=== PATIENT | female | born 2000 | race Caucasian/White ===

== ENCOUNTER 2023-03-04 22:47 | Emergency (ER) | payer OTHER, SELFPAY ==
[2023-03-04 23:05] VITALS: BP 130/62; PULSE 66; RESP 18; TEMP 36.3; O2SAT 97; BMI 20.7
--- NOTE | 2023-03-04 23:21 | DI.RAD.S_ITS ---
PROCEDURE: XR LUMBAR SPINE 2-3V INDICATIONS: low back pain,lifting heavy objects all summer TECHNIQUE: 3 views of the lumbar spine were acquired. COMPARISON: None. FINDINGS: Bones: 5 [id number] vertebrae are present. There is a minimal leftward curvature of the thoracolumbar spine. Disc spaces appear preserved. There is mild facet arthropathy at L5-S1. No vertebral body compression fractures. No suspicious bony lesions. Soft tissues: Overlying bowel gas pattern is normal. No suspicious soft tissue calcifications. IMPRESSION: 1. Mild facet arthropathy at L5-S1. Dictated by: Héctor Sherman M.D. on 03/05/2023 at 1:05 Approved by: Héctor Sherman M.D. on 03/05/2023 at 1:06
[2023-03-05 00:46] VITALS: BP 114/65; PULSE 60; RESP 18; O2SAT 99
--- NOTE | 2023-03-05 01:12 | ED_ITS ---
HPI - Back Pain/Injury General Chief Complaint: Back Pain/Injury Stated Complaint: low back pain Time Seen by Provider: 03/04/23 23:10 Source: patient Mode of arrival: Ambulatory Limitations: no limitations History of Present Illness HPI Narrative: Patient is a 22-year-old female who is here for evaluation of bilateral lower back with the right being greater than left back pain. 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 She states she does lift kayaking very frequently. She feels that she is been lifting more these over the past couple days. There was not 1 specific incident that caused the discomfort. She states that she gets spasms in her right lower back. It does seem to be positional. No fevers. No urinary symptoms. Has not tried anything for her symptoms prior to arrival. Related Data Previous Rx's Medication Instructions Recorded cyclobenzaprine 10 mg tablet 10 mg PO TID PRN muscle spasm #12 03/05/23 tabs Allergies Allergy/AdvReac Type Severity Reaction Status Date / Time No Known Drug Allergies Allergy Verified 03/04/23 23:17 Review of Systems Constitutional Constitutional: Reports system reviewed and no additional complaints, except as documented Musculoskeletal Musculoskeletal: Reports system reviewed and no additional complaints, except as documented Integumentary/Breasts Skin/Breast: Reports system reviewed and no additional complaints, except as documented Patient History Social History Smoking Status: Never smoker Smoking Status: Never smoker alcohol intake frequency: a few times a month Substance Use Type: does not use Exam Initial Vital Signs Initial Vital Signs: Vital Signs Temperature 97.3 F L 03/04/23 23:05 Pulse Rate 66 03/04/23 23:05 Respiratory Rate 18 03/04/23 23:05 Blood Pressure 130/62 03/04/23 23:05 Pulse Oximetry 97 03/04/23 23:05 Oxygen Delivery Method Room Air 03/04/23 23:05 Back/Spine/Pelvis Cervical Spine: No cervical muscular tenderness and No cervical spinal tenderness Thoracic/Lumbar Spine: paraspinal tenderness (Right-sided lumbar region), No thoracic spinal tenderness and No lumbar spinal tenderness Skin General: no rashes or lesions noted Neuro General: patient alert, patient awake and moves all extremities Extrem General: normal to inspection and capillary refill normal Course Orders Ordered: ED Orders 03/04/23 23:21 XR lumbar spine 2-3V Stat Discontinued Medications Cyclobenzaprine HCl (Cyclobenzaprine 10 Mg Prepack) 1 bottle MISC SEEINSTR ONE Stop: 03/05/23 01:22 Vital Signs Vital signs: Vital Signs - 8 hr 03/04/23 23:05 03/05/23 00:46 Temperature 97.3 F L Pulse Rate 66 60 Respiratory Rate 18 18 Blood Pressure 130/62 114/65 Pulse Oximetry 97 99 Oxygen Delivery Method Room Air Room Air MDM - Back Pain/Injury Imaging Data lumbar spine x-ray: Radiologist's Impression: PROCEDURE:? XR LUMBAR SPINE 2-3V ? INDICATIONS:? low back pain,lifting heavy objects all summer ? TECHNIQUE:? 3 views of the lumbar spine were acquired.? ? COMPARISON:? None. ? FINDINGS:? ? Bones:? 5 [id number] vertebrae are present.? There is a minimal leftward curvature of the thoracolumbar spine.? Disc spaces appear preserved.? There is mild facet arthropathy at L5-S1.? No vertebral body compression fractures.? No suspicious bony lesions.? ? Soft tissues:? Overlying bowel gas pattern is normal.? No suspicious soft tissue calcifications.? ? ? IMPRESSION:? ? 1. Mild facet arthropathy at L5-S1.? MDM Narrative Medical decision making narrative: X-ray shows no signs of fracture. Patient's symptoms are clearly muscular. No indication for further radiologic studies. We did discuss conservative measures to include heat/ice/massage and also stretching. Patient was given return precautions. She expressed understanding and agreement. Discharge Plan Departure Patient Disposition: Home Clinical Impression: Strain of lumbar region Instructions: DI for Low Back Pain Activity Restrictions/Additional Instructions: I recommend that you continue with the conservative measures such as heat/ice and massage. You can also use anti-inflammatories. Also recommend stretching. Take the muscle relaxers as needed. Contact your primary doctor for a follow- up. Prescriptions: New cyclobenzaprine 10 mg tablet 10 mg PO TID PRN (Reason: muscle spasm) Qty: 12 0RF Stand Alone Forms: Patient Portal/API
[2023-03-05] MEDS: CYCLOBENZAPRINE 10 MG PREPACK 1 BOTTLE MISC (01:27)
== END 2023-03-05 01:32 | disposition home or self-care (01) ==
PROVIDERS: Emergency Provider Emergency Medicine
DX: S39.012A Strain of muscle, fascia and tendon of lower back, initial encounter (principal); X50.0XXA Overexertion from strenuous movement or load, initial encounter
CPT/HCPCS: 72100; 99283